=== PATIENT | male | born 1970 | race Caucasian/White ===

== ENCOUNTER 2018-10-19 17:45 | Emergency (ER) | payer OTHER, SELFPAY ==
[2018-10-19 17:45] VITALS: BP 128/92; PULSE 104; PULSE 108; RESP 14; RESP 16; TEMP 38.2; O2SAT 98; O2SAT 99; BMI 26.2
--- NOTE | 2018-10-19 18:12 | CT_ITS ---
STUDY: CT ABDOMEN AND PELVIS WITH CONTRAST REASON FOR EXAM: Male, 47 years old. Left lower quadrant pain and fever RADIATION DOSAGE (If Supplied By Facility): CTDIvol = ( 11.11 ) mGy, DLP = ( 632.60 ) mGycm TECHNIQUE: Transaxial images were obtained from the dome of the diaphragm to the symphysis pubis without oral contrast, and without intravenous contrast. Sagittal and coronal images were reconstructed. Individualized dose optimization techniques were used for this CT. COMPARISON: None. FINDINGS: The visualized lung bases are unremarkable. The visualized portions of the heart are within normal limits. Normal liver. Normal gallbladder and extrahepatic biliary system. Normal spleen. Normal pancreas. Normal bilateral adrenal glands. Normal right kidney. Normal left kidney. Normal visualized stomach. Normal small intestine. There are scattered colonic diverticuli. There is wall thickening of the proximal sigmoid. There is fatty stranding surrounding the proximal sigmoid. There is no extraluminal gas or abnormal fluid collection. The appendix is visualized and appears normal. Normal abdominal aorta. Normal inferior vena cava. Normal retroperitoneum. Normal urinary bladder. The prostate is slightly generous in size. The seminal vesicles and seminal vesicle angles are normal. There is a small umbilical hernia containing fat. There is mild endplate spondylosis of the visualized thoracolumbar spine. CT/Abdomen/Pelvis W IV Cont ONLY IMPRESSION: Wall thickening of the proximal sigmoid. Scattered colonic diverticuli. Fatty stranding is noted surrounding the proximal sigmoid consistent with diverticulitis. There is no evidence of extraluminal gas or abnormal fluid collection in the region. Enlarged prostate. Small fat-containing umbilical hernia. Mild endplate spondylosis of the visualized thoracolumbar spine. Electronically Signed: Teo Puckett MD at 19:10 EDT , Service support ,
[2018-10-19 18:28] VITALS: TEMP 37.9
[2018-10-19 18:31] LABS: Bacteria 0 SEEN /hpf (None Seen); Mucous, Urine 0 SEEN /hpf (<or=2+); Red Blood Cells-Urine 0 SEEN /hpf (0-5); Squamous Epithelial Cells - UA 0 SEEN /hpf (0-5)
[2018-10-19 18:40] LABS: Absolute Lymphocyte Count 2.01 X10^3/ul (0.83-4.51); Absolute Neutrophil Count 6.5 X10^3/uL (2.0-7.7); Basophil# 0.02 X10^3/uL; Basophil% 0.2 % (0-1); Color, Urine Yellow (Yellow); Eosinophil# 0.07 X10^3/uL; Eosinophils% 0.7 % (0-5); Glucose, Dipstick Normal (Normal); Hematocrit 41.8 % (40-54); Hemoglobin 14.1 g/dl (13.0-16.5); Ketone-Dipstick Negative (Negative); Leukocyte Esterase-Dipstick Negative /ul (Negative); Lymphocyte # 2.01 X10^3/ul (4.0); Lymphocyte % 20.7 % (19-41); Mean Corp Hgb Conc 33.7 g/gl (32-36); Mean Corpuscular Hgb 29.9 pg (27.0-32.0); Mean Corpuscular Volume 88.6 fL (80-94); Mean Platelet Vol. 10.5 fl (6.2-12.0); Monocyte# 1.12 X10^3/uL; Monocyte% 11.5 % (0-10); Neutrophil # 6.47 X10^3/uL (2.7-7.7); Neutrophil % 66.7 % (47-70); Nitrite-Dipstick Negative (Negative); Occult Blood-Urine 50 /ul (Negative); Platelet Count 274 K/mm3 (150-450); Protein-Dipstick Negative (Negative); RBC Distribution Width CV 13.1 % (11.6-14.6); RBC Distribution Width SD 42.2 fl (35.1-43.9); Red Blood Count 4.72 M/mm3 (4.6-6.2); Specific Gravity, Urine 1.015 (1.002-1.030); Urine Bilirubin Dipstick Negative (Negative); Urine Clarity Clear (Clear); Urine Urobilinogen Normal (Normal); White Blood Count 9.7 K/mm3 (4.4-11.0)
[2018-10-19 18:41] LABS: POSITIVE COUNT NO; POSITIVE DIFFERENTIAL NO; POSITIVE MORPHOLOGY NO
[2018-10-19 18:46] LABS: ALB/GLOB Ratio 0.8 RATIO (0.9-2.4); AST(SGOT) 15 U/L (15-37); Alanine Aminotransfer ALT/SGPT 44 U/L (16-61); Albumin, Serum 3.9 g/dL (3.2-5.0); Alkaline Phosphatase 89 U/L (45-117); Anion Gap 8 (5-15); BUN 11 mg/dL (7-18); BUN/Creat Ratio 10.3 RATIO (10-20); Calcium,Total 9.4 mg/dL (8.5-10.1); Chloride 102 mmol/L (98-107); Creatinine, Serum 1.07 mg/dL (0.70-1.30); EST Glomerular Filtration Rate 79 mL/min (>60); Est Glom Filt Rate - Afr Amer 96 mL/min (>60); Estimated Creatinine Clearance 78.67 ml/min; Globulin 4.8 g/dL (2.2-4.2); Glucose 92 mg/dL (74-106); Lipase 67 U/L (73-393); Potassium 3.5 mmol/L (3.5-5.1); Protein, Total 8.7 g/dL (6.4-8.2); Sodium Level 136 mmol/L (136-145)
[2018-10-19 18:48] LABS: White Blood Cells 0-5 SEEN /hpf (0-5)
[2018-10-19] MEDS: 0.9% Normal Saline 1,000 ML 1000 ML IV (18:50)
[2018-10-19] MEDS: Acetaminophen 500 MG Tablet 1000 MG PO (19:23)
--- NOTE | 2018-10-19 19:33 | ED.DCSUM_ITS ---
- ER Visit Summary Date of Service: 10/19/18 Chief Complaint: Abdominal pain History of Present Illness: The patient is a 47 M resents the emergency department with a left lower quadrant abdominal pain. This is been present since Friday (day 4. He states on Friday he began to have some fevers and chills and then during the night developed diarrhea. States on Friday he had a little bit of pain in the left lower quadrant today he noticed it more with movement and with some touch. He did have a couple episodes of nausea vomiting but the diarrhea has continued. He has had chills as well as intermittent subjective fevers. No prior significant medical history. Takes no medicines has no allergies. He has had no prior colonoscopies. Physical Examination: Temperature 100.7 heart rate of 104 respirations are 16 pulse ox 99% room air blood pressure 128/92 Gen: Well-nourished well-developed Head: Normocephalic atraumatic Eyes: Perrl EOMI ENT: TMs clear no rhinorrhea moist mucous membranes Neck: Supple no lymphadenopathy no JVD nontender CVS: Regular rate rhythm no murmurs normal S1-S2 Respiratory: No distress clear to auscultation bilaterally chest nontender Abdomen: Soft out tenderness to palpation in the left lower quadrant. No guarding or rebound. Nondistended normal bowel sounds no masses Back: Nontender Extremity: Nontender no edema Skin: Normal color no rash Neuro: alert orientated ?3 CN II-XII intact normal strength sensation reflexes gait cerebellar Psych: Normal affect normal mood Test Results: White count is normal. Lactic acid normal. BMP normal. Urinalysis normal. CT the pelvis demonstrates acute sigmoid diverticulitis wit hout perforation or abscess formation. Emergency Department Course and Treatment: The patient received Tylenol for his temperature. I discussed the results with him and his as well as disposition. We talked about whether or not to admit him versus outpatient trial. He feels well enough to go home. I have asked that if we do send him home that he take a couple days off of work to heal. He will return if he is worsening. He will need to follow-up to schedule outpatient colonoscopy when he is better. Impression: 1. Acute sigmoid diverticulitis This note was generated with Audio[employer] dictation software. It may contain incorrect words, spelling, and punctuation that were not noted in review of the chart prior to signing ED Disposition - Plan for ED Patient: Disposition: Home or Assisted Living Instructions: Diverticulitis Prescriptions: Ciprofloxacin [Cipro] 500 mg PO BID #20 tab Prescription Printed metroNIDAZOLE [Flagyl] 500 mg PO Q8H #30 tab Prescription Printed Referrals: Austin Pagan MD [Primary Care Provider] - 1 Week Additional Instructions: Will need a colonoscopy when you are healed from this infection.
[2018-10-19 19:47] VITALS: BP 126/87; PULSE 95; RESP 16; O2SAT 99
== END 2018-10-19 19:48 | disposition home or self-care (01) ==
PROVIDERS: Emergency Provider Emergency Medicine; Family Provider Family Medicine; PCP Family Medicine
DX: K57.32 Diverticulitis of large intestine without perforation or abscess without bleeding (principal)
CPT/HCPCS: 74177; 80053; 81001; 83605; 83690; 85025; 96360; 99284; J7030; Q9967; A4216

== ENCOUNTER 2020-08-21 23:16 | Emergency (ER) | payer OTHER, SELFPAY ==
[2020-08-21 23:17] VITALS: BP 103/70; PULSE 117; RESP 18; TEMP 37.9; O2SAT 96; BMI 28.3
--- NOTE | 2020-08-21 23:35 | RAD_ITS ---
STUDY: X-RAY - PELVIS AND RIGHT HIP REASON FOR EXAM: Male, 49 years old. Injury, pain. TECHNIQUE: 3 views of the pelvis and hip. COMPARISON: CT abdomen and pelvis October 19, 2018. FINDINGS: There is a non-specific bowel gas pattern. Normal visualized soft tissue structures. Normal bilateral iliac wings, sacroiliac joints and visualized sacrum. Normal bilateral superior and inferior pubic rami. Normal pubic symphysis. Normal bilateral ischial tuberosities. Multiple densities ranging from 0.4 cm to 1.0 cm overlying the right femoral head and neck which may represent loose bodies, not present previously. Normal acetabulum. No significant hip joint space narrowing. RAD/HIP, UNI W/ Pelvis 2-3 Views IMPRESSION: Possible loose bodies right hip joint. Consider correlation with CT. Electronically Signed: Thien Huddleston MD at 0:25 EDT , Service support ,
--- NOTE | 2020-08-21 23:37 | EDS_ITS ---
HPI History of Present Illness Chief Complaint: Lower Extremity Injury Informant: patient and spouse/S.O. Onset/Context/Timing Onset: Days (This occurred last ) Mechanism/Context: Blunt Injury, Fall and Slip Location of pain/injuries: Right hip, Right thigh and Right Knee Quality of Pain: Dull and Aching Location: Greater trochanteric region Current Severity: Mild Maximum Severity: Severe Worsened by: Movement and weightbearing Relieved by: Nothing Associated Symptoms Associated Symptoms: Negative for Parasthesias, Weakness, Loss of function and Inability to ambulate Narrative Narrative: Patient 49-year-old male who presents with right hip and knee pain status post fall. Fall did occur at work. He states his leg went outward and he landed on his left knee. He denies fever or chills. He denies history of osteoarthritis or rheumatoid arthritis. He has taken NSAIDs with no improvement. He denies paresthesia, anesthesia motors. He denies low back pain. He denies prior injury. Tetanus Immunization: 5-10 years Prior similar symptoms: No Recent Illness/Hospitalization: No PFSH PFSH Medical History (Updated 08/22/20 @ 02:[address] Chapin Land MD) Hypercholesterolemia Home Medications rosuvastatin 10 mg PO QHS 08/21/20 [History Last Taken Unknown] oxycodone-acetaminophen 1 tab PO Q6H PRN PRN 5 Days #20 tablet 08/22/20 [Rx Last Taken Unknown] Allergy/AdvReac Type Severity Reaction Status Date / Time amoxicillin [From Augmentin] AdvReac PT UNSURE Verified 08/21/20 23:17 OF REACTION clavulanic acid AdvReac PT UNSURE Verified 08/21/20 23:17 [From Augmentin] OF REACTION no surgical history Social History (Updated 08/21/20 @ 23:[address] Chapin Land MD) household members: spouse and children Smoking Status: Never smoker Smokeless tobacco user: chewing tobacco alcohol intake: current alcohol intake frequency: holidays/special occasions only substance use type: does not use ROS ROS ED Constitutional Constitutional ED: Denies chills, fever(s) or subjective Eyes Eyes: Denies blurry vision or change in vision ENT ENT ED: Denies ear pain, rhinorrhea or sore throat Cardiovascular Cardiovascular: Denies chest pain or palpitations Respiratory/Chest Respiratory/Chest: Denies cough, dyspnea or dyspnea on exertion Gastrointestinal Gastrointestinal: Denies abdominal pain Genitourinary Genitourinary ED: Denies dysuria, hematuria or urinary frequency Musculoskeletal Musculoskeletal: Reports other Details: Right greater trochanteric region and right knee. ; Denies arthralgias or myalgias Integumentary Denies rash Neurologic Neurologic: Denies headache(s), paresthesias or weakness Hematologic/Lymphatic Hematologic/Lymphatic: Denies easy bleeding or easy bruising EXAM Physical Exam Const Vital Signs: 08/21/20 23:17 08/22/20 01:31 Temperature 100.2 F H Temperature Source Temporal Pulse Rate 117 H 71 Respiratory Rate 18 18 Blood Pressure 103/70 108/72 Blood Pressure Mean 81 84 Pulse Ox 96 96 Oxygen Delivery Method Room Air Room Air Positive well nourished and well developed General Appearance ED: well developed HEENT HEENT Narrative: No evidence of facial trauma. atraumatic Eyes PERRL and EOMs intact bilaterally General Eye ED: Yes other Other Details: Sclerae anicteric. Conjunctive is pink. Chest Wall inspection of chest normal and palpation of chest normal Resp normal respiratory effort and clear to auscultation bilaterally Cardio regular rhythm, S1 normal heart sound, S2 normal heart sound and no murmurs Rate: tachycardic GI normal to inspection, nondistended, normoactive bowel sounds Narrative: There is slight tenderness over the pubic symphysis. Extremity normal to inspection and full ROM Extremity Narrative: There is pain with logrolling. There is pain with patient lifting his right lower extremity off the bed. There is no pain elevation over the lateral or medial malleolus. There is minimal discomfort over the tibial plateau. Patella is not ballotable. There is no effusion. Patient is able to extend 280 degrees and flex to approximately 90 degrees. He does complain of pain in his hip with movement. Robbie's test was negative unable to perform modified Ericka's because of hip pain. He has pain the patient of the greater trochanteric region and inguinal area with palpation and logroll. General Extremety ED: Yes tenderness; Negative for deformity or edema General Extremity: Negative for deformity or edema Neuro oriented x3, CN's II-XII intact bilaterally and moves all extremities Sensorium / Orientation: alert Motor Exam: strength 5/5 throughout Psych mental status grossly normal and thought process normal Skin no rashes or lesions noted MDM MDM MDM Narrative Medical decision making narrative: Patient was medicated with oxycodone. X-ray of the hip was obtained. Since he has significant pain if no fracture is noted will obtain CT of the hip to evaluate for occult fracture. Three-view x-ray of the hip was obtained. There is a loose body noted. There appears to be a fracture involving the anterior superior rim of the acetabulum. There is also a radiolucent line noted through the head of the right femur. The radiology report was read. Recommended CT. CT was ordered. Awaiting formal read by radiologist. Radiography Diagnostic Testing: Radiology Impression Hip/Pelvis X-Ray 08/21/20 23:35 IMPRESSION: Possible loose bodies right hip joint. Consider correlation with CT. Electronically Signed: Thien Huddleston MD at 0:25 EDT , Service support , Lower Extremity CT 08/22/20 00:36 IMPRESSION: Possible small loose bodies posterior aspect of the hip joint. Electronically Signed: Thien Huddleston MD at 2:04 EDT , Service support , The radiology report was read. Since these are new loose bodies and he compl ains of pain after fall will treat with crutches weightbearing as tolerated and referred to Dr. Ed Orourke who is on-call for orthopedics. Discharge Plan Triage Chief Complaint: Lower Extremity Injury ED Provider: Chapin Land Dx/Rx/DC Orders Clinical Impression: Acute pain of right hip, Fall with injury, Loose body in right hip Instructions: ED Hip Contusion Prescriptions: New oxycodone-acetaminophen [oxycodone-acetaminophen] 1 TABLET tablet 1 tab PO Q6H PRN PRN (Reason: right hip pain) 5 Days Qty: 20 RF: 0 No Action rosuvastatin 10 mg tablet 10 mg PO QHS RF: 0 Primary Care Provider: Austin Pagan Referrals: Austin Pagan MD [Primary Care Provider] - Ed Orourke DO [STAFF PHYSICIAN] - 3-5 Days
[2020-08-21] MEDS: oxyCODONE 5 MG Tablet PO (23:48)
--- NOTE | 2020-08-22 00:36 | CT_ITS ---
STUDY: CT HIP WITHOUT CONTRAST RIGHT REASON FOR EXAM: Male, 49 years old. Possible fracture, unable to bear weight RADIATION DOSAGE (If Supplied By Facility): CTDIvol = ( 12.67 ) mGy, DLP = ( 398.68 ) mGycm. Individualized dose optimization techniques were used for this CT.? TECHNIQUE: Axial images of the right hip without administration of intravenous contrast with sagittal and coronal reconstructions. COMPARISON: Right hip August 21, 2020. CT abdomen and pelvis October 19, 2018. FINDINGS: Alignment is normal. No dislocation. 0.5 cm density adjacent to the anterior lateral aspect of the acetabulum probably representing a normal variant present previously. Mild irregularity posterior lateral border of the acetabulum, with 2 small densities largest measuring 0.8 cm, coronal image 44 and axial image 63 series 2, not definitely present previously. No femoral neck fracture. No joint effusion. CT/Extremity Lower without Contra IMPRESSION: Possible small loose bodies posterior aspect of the hip joint. Electronically Signed: Thien Huddleston MD at 2:04 EDT , Service support ,
[2020-08-22 01:31] VITALS: BP 108/72; PULSE 71; RESP 18; O2SAT 96
[2020-08-22 02:55] VITALS: BP 104/77; PULSE 74; RESP 17; O2SAT 97
== END 2020-08-22 03:10 | disposition home or self-care (01) ==
LOC: ED 08-22 00:35
PROVIDERS: Emergency Provider Emergency Medicine; PCP Family Medicine
DX: M24.051 Loose body in right hip (principal); S79.911A Unspecified injury of right hip, initial encounter; W01.0XXA Fall on same level from slipping, tripping and stumbling without subsequent striking against object, initial encounter; Y93.9 Activity, unspecified; Y92.9 Unspecified place or not applicable; Y99.0 Civilian activity done for income or pay; E78.00 Pure hypercholesterolemia, unspecified; F17.220 Nicotine dependence, chewing tobacco, uncomplicated; Z79.899 Other long term (current) drug therapy
CPT/HCPCS: 73502; 73700; 99283

== ENCOUNTER → 2020-12-25 | Outpatient (CLI) | payer OTHER, SELFPAY | END | disposition home or self-care (01) | PROVIDERS: PCP Family Medicine; Referring Provider Physician Assistant Surgical; Visit Provider Physician Assistant Surgical | DX: U07.1 COVID-19 (principal) | CPT/HCPCS: 87635; U0005; U0003 ==